=== PATIENT | male | born 1940 | race Caucasian/White ===

== ENCOUNTER → 2017-04-05 | Outpatient (CLI) | payer MEDICARE ==
[~2017-04-05] MED LIST: ASPI81TA2 PO; CALC600T12 PO; CHOL200026 PO; CYAN250010 PO; IOHEXOL 350mg/ml 200ml BOTTLE ONE; LIDOCAINE 1% (10mg/ml) 30ml SDV ONE; LISI1TAB11 PO; MethylPREDNISolone ACETATE 80mg/1ml ONE; [UNRECOGNIZED DRUG - CODE] PO
--- NOTE | 2017-04-05 08:59 | PDPROCED ---
Procedure DATE OF PROCEDURE 04/05/17 PREPROCEDURE DIAGNOSIS Right hip pain. POSTPROCEDURE DIAGNOSIS Right hip pain. PROCEDURE Intraarticular injection of right hip with Depo-Medrol. SURGEON Rod Flores MD COMPLICATIONS None. ANESTHESIA Local. INDICATIONS Please see office notes. DESCRIPTION OF PROCEDURE The patient and the right hip were identified. The patient was placed on the fluoroscopy table and the right anterior hip was prepped and draped in normal sterile fashion. Ethyl Chloride spray was used to anesthetize the skin and a 25 gauge needle was used to inject 1% lidocaine at the anterior lateral thigh. This needle was then removed and a spinal needle was introduced into the same path and again lidocaine was used to anesthetize the path down to the hip joint. Confirmation that the needle was within the capsule of the hip joint was done by placing 1 cc of Omnipaque dye under fluoroscopic imaging until the capsule lines appeared on fluoroscopy confirming that the needle was intraarticular. 160 mg of Depo-Medrol was then injected in to the hip joint. The needle was removed. The site was then cleaned with alcohol and a Band-aid was placed. The patient tolerated the procedure well. FOLLOW UP 3-4 weeks or sooner with any problems or concerns. ALEXANDER FLORES MD April 05, 2017 08:59
== END ==
LOC: CATH.INJ 08:16
PROVIDERS: ATTEND Orthopaedic Surgery
DX: M16.11 Unilateral primary osteoarthritis, right hip (principal)
CPT/HCPCS: 20610; 77002; J1040; Q9967